=== PATIENT | female | born 1985 | race Caucasian/White ===

== ENCOUNTER 2019-08-29 01:13 | Emergency (ER) | payer BC, SELFPAY ==
--- NOTE | ~2019-08-29 | XR_ITS ---
EXAMINATION: XR abdomen/kub 1V INDICATION: Left upper quadrant pain, constipation TECHNIQUE: Supine views of the abdomen were obtained on 2 radiographs. COMPARISON: None FINDINGS: A large volume of colonic stool is present. The bowel gas pattern is normal. There are no d ilated loops of bowel. The visualized osseous structures are unremarkable. IMPRESSION: 1. Constipation Reviewed, dictated and finalized at location A. IMPRESSION: 1. Constipation
--- NOTE | ~2019-08-29 | XR_ITS ---
EXAMINATION: XR chest 2V DATE: 08/29/2019 02:45 INDICATION: Shortness of breath TECHNIQUE: PA and lateral views of the chest are obtained. COMPARISON: None available FINDINGS: The lungs are free of acute opacities. There is no pleural effusion or pneumothorax. The ca rdiomediastinal silhouette is normal. The visualized bones and soft tissues are unremarkable. IMPRESSION: 1. No acute cardiopulmonary abnormality. Reviewed, dictated and finalized at location A.
[2019-08-29 01:16] VITALS: BP 125/87; PULSE 121; RESP 20; TEMP 36.5; O2SAT 99
[2019-08-29 01:55] LABS: Basophils Percent Auto 0.3 % (0.2-1.2); Eosinophils Absolute Auto 0.1 K/mm3 (0-0.3); Eosinophils Percent Auto 1.5 % (0-4.4); Hemoglobin 14.2 g/dL (12.0-15.0); Immature Granulocyte Absolute 0.03 K/mm3 (0.00-0.031); Immature Granulocyte Percent A 0.4 % (0-0.5); Lymphocytes Absolute Auto 2.18 K/mm3 (0.9-3.2); Mean Corpuscular Hemoglobin 31.3 pg (26-34); Mean Corpuscular Volume 94.7 fl (80-100); Mean Platelet Volume 9.8 fl (7.4-10.4); Monocytes Absolute Auto 0.7 K/mm3 (0.1-0.6); Monocytes Percent Auto 8.7 % (2.6-8.5); Neutrophils Absolute Auto 4.8 K/mm3 (1.3-6.7); Neutrophils Percent Auto 61.1 % (45.5-73.1); Platelet Count Result 280 k/mm3 (150-375); Red Blood Count 4.54 M/mm3 (4.2-5.4); Red Cell Distribution Width 13.1 % (11.5-14.5); White Blood Count 7.8 K/mm3 (4.5-10.0)
[2019-08-29 01:58] LABS: Add Urine Microscopic? NO; Appearance Urine Clear (Clear); Bilirubin Urine Negative (Negative); Blood Urine Negative (Negative); Color Urine Yellow (Yellow); Glucose Urine UA Negative (Negative); Ketones Urine Negative (Negative); Leukocyte Esterase Ur Negative LEU/UL (Negative); Nitrate Urine Negative (Negative); Protein Urine Negative (Negative); Specific Grav Ur 1.026 (1.001-1.035); Urobilinogen Urine Negative mg/dL (<2.0)
[2019-08-29 02:10] LABS: Alanine Aminotransferase 15 U/L (4-35); Albumin Level 4.2 g/dL (3.5-5.1); Alkaline Phosphatase 86 U/L (38-126); Aspartate Amino Transferase 21 U/L (14-36); Bilirubin,Total 0.4 mg/dL (0.2-1.3); Blood Urea Nitrogen 10 mg/dL (7-17); Carbon Dioxide 25 mmol/L (22-30); Chloride 104 mmol/L (98-107); Estimated Glomerular Filt Rate > 60; Glucose 88 mg/dL (65-105); Lipase 36 U/L (23-300); Potassium 3.7 mmol/L (3.4-5.0); Sodium 136 mmol/L (137-145)
--- NOTE | 2019-08-29 02:24 | ED.ABDPAIN ---
HPI - Abdominal Pain General Chief Complaint: Abdominal Pain Stated Complaint: ABD PAIN Time Seen by Provider: 08/29/19 01:17 History of Present Illness HPI narrative: 33 yo female presents from home for abdominal pain. She reports that she has had LUQ pain for several months. worse with taking a deep breath. Associated with constipation and intermittent SOB. She reports that she was told that she had an abnormal EKG and needed a chest x-ray, although she could not provide additional information on this. She does admit to anxiety making her symptoms worse. Related Data Home Medications Medication Instructions Recorded Confirmed No Home Medications 08/29/19 08/29/19 Allergies Allergy/AdvReac Type Severity Reaction Status Date / Time Penicillins Allergy Hives Verified 08/29/19 01:27 Review of Systems Review of Systems: All systems reviewed & are unremarkable except as noted in HPI and below Constitutional: Constitutional: Reports fever(s) Cardiovascular: Cardiovascular: Denies chest pain Respiratory: Respiratory: Denies cough and Reports dyspnea Gastrointestinal: Gastrointestinal: Reports abdominal pain, Reports constipation and Reports nausea Genitourinary: Genitourinary: Reports dysuria Musculoskeletal: Musculoskeletal: Denies back pain Psychiatric: Psychiatric: Reports anxiety [facility] Social History Social History (Updated 08/31/19 @ 11:03 by Cam Blanca MD) Substance use: former Exam Const: General: healthy appearing, no acute distress and alert Orientation/consciousness: patient oriented x3 HENMT: Head: normal to inspection Neck: Neck: normal visual inspection and no lymphadenopathy Chest: Chest palpation & inspection: no tenderness Resp: Effort & Inspection: normal respiratory effort Auscultation: clear to auscultation bilaterally, no rales, no rhonchi and no wheezes Cardio: Jugular venous distension: no JVD Rate: regular rate Rhythm: regular rhythm Heart sounds: no murmurs GI: Inspection: non-distended GI Palp: Yes Soft to palpation and No Tenderness to palpation present (GI) Skin: General skin exam: normal color Neuro: General: patient oriented x3 and moves all extremities Speech: normal speech Extrem: General: no edema Psych: Appearance: well kempt Affect: normal affect Course Vital Signs Vital signs: Vital Signs Temperature 36.5 C 08/29/19 01:16 Pulse Rate 121 H 08/29/19 01:16 Respiratory Rate 20 08/29/19 01:16 Blood Pressure 125/87 08/29/19 01:16 Pulse Oximetry 99 08/29/19 01:16 Temperature 36.5 C 08/29/19 01:16 Pulse Rate 71 08/29/19 04:30 Respiratory Rate 16 08/29/19 04:30 Blood Pressure 110/54 L 08/29/19 04:30 Pulse Oximetry 100 08/29/19 04:30 MDM - Abdominal Pain MDM Narrative Medical decision making narrative: KUB shows constipation. Labs reassuring. EKG normal. Differential Diagnosis Differential diagnosis: Likely constipation Medical Records Attestation: I reviewed the patient's medical records. Lab Data Result diagrams: 08/29/19 01:43 08/29/19 01:43 Labs: Lab Results 08/29/19 08/29/19 08/29/19 Range/Units 01:43 01:43 01:43 WBC 7.8 (4.5-10.0) K/mm3 RBC 4.54 (4.2-5.4) M/mm3 Hgb 14.2 (12.0-15.0) g/dL Hct 43.0 (37.0-47.0) % MCV 94.7 (80-100) fl MCH 31.3 (26-34) pg MCHC 33.0 (32-36) g/dl RDW 13.1 (11.5-14.5) % Plt Count 280 (150-375) k/mm3 MPV 9.8 (7.4-10.4) fl Immature Gran % (Auto) 0.4 (0-0.5) % Neut % (Auto) 61.1 (45.5-73.1) % Lymph % (Auto) 28.0 (18.3-44.2) % [place] % (Auto) 8.7 H (2.6-8.5) % Eos % (Auto) 1.5 (0-4.4) % Baso % (Auto) 0.3 (0.2-1.2) % Lymph # (Auto) 2.18 (0.9-3.2) K/mm3 [place] # (Auto) 0.7 H (0.1-0.6) K/mm3 Eos # (Auto) 0.1 (0-0.3) K/mm3 Baso # (Auto) 0.0 (0.0-0.1) K/mm3 Abs Immat Gran (auto) 0.03 (0.00-0.031) K/mm3 Absolute Neuts (auto) 4.8 (1
--- NOTE | 2019-08-29 02:27 | ECG_ITS ---
Measurements Intervals [place] Rate: 88 P: 69 CO: 139 QRS: 72 QRSD: 91 T: 62 QT: 352 QTc: 427 Interpretive Statements SINUS RHYTHM NORMAL ECG Electronically Signed On 08-30-2019 14:07:19 CDT by Sim Saez D.O.
[2019-08-29 02:30] VITALS: BP 108/60; PULSE 84; RESP 18; O2SAT 100
[2019-08-29 03:30] VITALS: BP 93/58; PULSE 86; RESP 16; O2SAT 99
[2019-08-29 04:30] VITALS: BP 110/54; PULSE 71; RESP 16; O2SAT 100
== END 2019-08-29 04:55 | disposition home or self-care (01) ==
PROVIDERS: Emergency Provider Emergency Medicine
DX: K59.00 Constipation, unspecified (principal)
CPT/HCPCS: 36415; 71046; 74018; 80053; 81003; 81025; 83690; 85025; 93005; 99283